=== PATIENT | male | born 1995 | race Caucasian/White ===

== ENCOUNTER 2018-12-31 12:20 | Outpatient (CLI) | payer BC ==
--- NOTE | 2018-12-31 13:41 | MRI ---
MRI Lower Ext Jt Lt WO Con History: S 83.512A rupture ACL of left knee Comparison: Knee radiograph December 27, 2018 Findings: Medial meniscus: Complex tear posterior horn medial meniscus extending to the root attachme nt with relatively vertical component through the red zone as well as a radial oblique tear extending to the posterior horn body junction from the free edge into the intermediate zone. There is also tear of the posterior medial meniscocapsular junction. Lateral meniscus: Intact Complete rupture proximal fibers anterior cruciate ligament. Posterior cruciate ligament is intact. G rade 2 tear medial collateral ligament posterior oblique fibers. Abnormal high signal, grade 1 injury, the lateral collateral ligament. The biceps tendon is intact. There is a tear of the arcuate ligament. Grade 2 tear of the popliteus. Extensor mechanism: The quadriceps tendon, patella, and patellar tendon are intact. Cartilage: Patellofemoral compartment: Intact Medial compartment: Intact Lateral compartment: Intact Bones: There is a subtle cortical impaction fracture lateral femoral condyle as well as a lateral tib ial plateau posterior submeniscal contusion. Soft tissues: Moderate joint effusion. No free bodies appreciated. Muscles: Grade 2 partial tear of the popliteus as well as the soleus grade 1 injury. Impression: 1. Full-thickness rupture proximal fibers anterior cruciate ligament. 2. Complex tear medial meniscus including a vertical longitudinal tear through the posterior horn as well as a radial oblique tear of the horn body junction. There is also posterior meniscocapsular separation. Vertical longitudinal tear does extend to the root attachment. 3. Grade 1 injury of the lateral collateral ligament. 4. Grade 2 partial tear of the popliteus myotendinous junction with edema extending into the muscle b august. 5. Low-grade 1 injury of the soleus. 6. Rupture of the arcuate ligament and intact biceps tendon. 7. Rupture of the posterior oblique fibers medial collateral ligament.
== END 2018-12-31 12:21 | disposition home or self-care (01) ==
LOC: TBSIIMAG 12:20
PROVIDERS: ATTEND Orthopaedic Surgery
DX: S83.512A Sprain of anterior cruciate ligament of left knee, initial encounter (principal); S83.232A Complex tear of medial meniscus, current injury, left knee, initial encounter; S76.812A Strain of other specified muscles, fascia and tendons at thigh level, left thigh, initial encounter; S83.8X2A Sprain of other specified parts of left knee, initial encounter; S83.412A Sprain of medial collateral ligament of left knee, initial encounter; S86.002A Unspecified injury of left Achilles tendon, initial encounter; R60.0 Localized edema

== ENCOUNTER 2019-01-05 07:35 | Observation (INO) | payer BC, OTHER ==
[2019-01-03 16:12] VITALS: BMI 29.5
[2019-01-05] MEDS ORDERED: ceFAZolin Sodium (SDC) 2 GM/100 ML BAG ONE (07:57)
[2019-01-05] MEDS ORDERED: Midazolam HCl 2 mg/2 ml Vial ONE (08:21)
[2019-01-05] MEDS ORDERED: Fentanyl 100 MCG/2 ML VIAL ONE ×4 (08:21→13:00)
[2019-01-05] MEDS ORDERED: Lidocaine 1% (PF) 30 ML VIAL ONE (08:22)
[2019-01-05] MEDS ORDERED: Ondansetron PF 4 MG/2 ML Vial IVP PRN (09:23)
[2019-01-05] MEDS ORDERED: Zolpidem Tartrate 5 MG TAB PO PRN (09:23)
[2019-01-05] MEDS ORDERED: Ropivacaine 0.2% 550 ML 550 ML NERVE BLCK SCH (09:23)
[2019-01-05] MEDS ORDERED: HYDROcodone/Acetaminophen 10/325 mg Tablet PO PRN ×2 (09:23)
[2019-01-05] MEDS ORDERED: Promethazine HCl 25 MG/ML VIAL IM PRN (09:23)
[2019-01-05] MEDS ORDERED: traMADol HCl 50 MG TAB PO PRN ×2 (09:23)
[2019-01-05] MEDS ORDERED: Fentanyl 100 MCG/2 ML VIAL IV PRN (09:24)
[2019-01-05] MEDS ORDERED: Morphine 2 MG/ML SYRINGE SLOW IVP PRN (11:47)
[2019-01-05] MEDS ORDERED: Milk Of Magnesia 30 ML UDCUP PO PRN (11:47)
[2019-01-05] MEDS ORDERED: diphenhydrAMINE 50 MG CAP PO PRN (11:47)
[2019-01-05] MEDS ORDERED: Methocarbamol 500 MG TAB PO PRN (11:47)
[2019-01-05] MEDS ORDERED: HYDROcodone/Acetaminophen 7.5/325 mg Tablet PO PRN (11:47)
[2019-01-05] MEDS ORDERED: Acetaminophen 500 MG TAB PO PRN (11:47)
[2019-01-05] MEDS ORDERED: Morphine 4 MG/ML VIAL SLOW IVP PRN (11:47)
[2019-01-05] MEDS ORDERED: Bisacodyl 10 MG SUPP PR PRN (11:47)
--- NOTE | 2019-01-05 12:51 | OP ---
DATE OF PROCEDURE: 01/05/2019 POSTOPERATIVE DIAGNOSES: Left knee anterior cruciate ligament tear and medial meniscus tear. POSTOPERATIVE DIAGNOSES: Left knee anterior cruciate ligament tear and medial meniscus tear. PROCEDURES PERFORMED: 1. Left knee exam under anesthesia. 2. Left knee arthroscopy with arthroscopically-assisted anterior cruciate ligament reconstruction using autologous patellar tendon graft. 3. Partial medial meniscectomy. LAND SURVEYOR: Darryl Howard PA-C ESTIMATED BLOOD LOSS: Minimal. COMPLICATIONS: None. ANESTHESIA: The patient had general anesthetic. He also had a preoperative block. IMPLANTS: We used a 7 x 25 metal interference screw to fix the femur. We used bicortical screw with a smooth washer to fix our tibia. DISPOSITION: He did go to recovery room in stable condition. INDICATIONS: This is a 23-year-old who injured his left knee while dancing and at this time is presenting for reconstruction. DESCRIPTION OF PROCEDURE: After all appropriate consent forms were explained and signed, he was taken to the operative room and at this time was given general anesthetic. An exam under anesthesia confirmed a positive Janell's and a positive pivot. At this time, a tourniquet was placed on the left thigh. Leg was placed in arthroscopic leg lopez. The limb was then prepped and draped in standard surgical fashion. Limb was exsanguinated. Tourniquet was taken to 250 mmHg. Midline incision was made with 10 blade down through the skin. Bovie was used to coagulate any brisk venous bleeding. New blade was used to take paratenon off the underlying patellar tendon and at this time, a central third patellar tendon graft was harvested in standard fashion using a double 10 blade saw and osteotome. This was taken to the back table and fashioned so that both bone plugs were size 10. We then loosely closed our graft site using multiple interrupted Vicryl sutures. Inferolateral portal was established. Scope was placed into the knee joint. Needle localization technique was then used to make our medial working portal and at this time, diagnostic arthroscopy commenced. ACL was found to be torn. PCL was intact. There was a chondral injury to the medial femoral condyle. This was not full thickness, but appeared to be proximally grade 2 lesion. This was about 8 to 10 mm in medial and lateral width and about 6 mm anterior-posterior. At this time, the medial compartment was evaluated. There was a very complex tear of the medial meniscus, which included a far posterior horn tear between the meniscus and the capsule. There was then another horizontal tear anterior to this and then anterior to that, there was a 3rd tear, which was a radial oblique tear, which started toward the body and went posteriorly to near the area of the posterior root. At this time, the most anterior portion of the tear was obviously not deemed repairable, was found to be avascular and this was removed with a biter in hopes we could fix the portion of the tissue behind it. Once this was done, we did try to fix the remaining tissue, but this was found to be too unstable in the small remnant that was anterior to our most posterior tear and in trying to deploy the device, just pulled right through the tissue secondary to poor quality. Therefore, it was deemed that we would just remove this portion of the meniscus, trying to leave as much as possible as a remnant. Biter was then used to remove portion of the meniscal tear. The patient again did loose meniscus. It was not a subtotal meniscectomy, but probably in the realm of 50% of the posterior horn medial meniscus had to be removed. The body and anterior horn were normal. The lateral compartment was then evaluated and found to be intact. Patellofemoral joint was found to be in good condition. At this time, notchplasty was performed and once this was done, we flexed our knee up and through the medial portal, placed an an [id number] guide. Pin was placed up and out the anterolateral thigh. A 10-mm reamer was then used to ream our tunnel to a depth of 30. All loose bony cartilaginous debris was then removed from the knee joint. We then set our tibial guide into the knee at 52.5 degrees, placed our pin up into the knee joint and again reamed it with a 10 mm reamer. Again, all loose bony cartilaginous debris was removed from the knee joint. Once this was done, we smoothed off our rough edges using a raf and a rasp. We went dry. We flexed the knee up again, pulled the pin up and out the anterolateral thigh using this to pull our passing suture into the knee joint. The passing suture was pulled down the tibial tunnel and this was used to pull our graft up into the knee. Once this was done, our femoral side was fixated with a 7 x 25 metal interference screw and our knee was taken through range of motion by pulling on the tibial side strings that was taken to 3 to 5 degrees of hyperextension and full flexion. Graft was found to not impinge and was found to be in good position. Therefore, scope was removed. Knee was drained. We then drilled, tapped and placed our bicortical screw with a smooth washer and used this to tie our strings around as a post in near full extension and posterior drawer being applied. Once this was done, again the knee was taken through full range of motion and Janell was noted to be normal. At this time, we then bone grafted our patellar and tibial graft sites. We then ran a Vicryl to close our paratenon, 2-0 Vicryl and timoteo were used to close the skin. Bulky sterile dressing was applied. Tourniquet was let down. Toes pinked up nicely. The patient was awakened, taken to the recovery room in stable condition. All counts were correct at the end of the case and he did receive preoperative IV antibiotics. Job ID: [id number]
[2019-01-05] MEDS ORDERED: Promethazine HCl 25 MG/ML VIAL IM/IV PRN (13:16)
[2019-01-05] MEDS ORDERED: Ondansetron HCl/PF 4 MG/2 ML Vial IVP PRN (13:16)
[2019-01-05] MEDS ORDERED: HYDROmorphone 2 MG/ML VIAL SLOW IVP PRN (13:16)
[2019-01-05] MEDS ORDERED: Non-Formulary Medication 1 EACH PO PRN (13:16)
[2019-01-05] MEDS ORDERED: CEFAZOLIN 2 GM, IV Admixture Fee-Chemo 1 UNITS in Sodium Chloride 0.9% 100 ML IVPB SCH (14:00)
[2019-01-05] MEDS: Ketorolac Tromethamine 30 MG/ML VIAL IVP SCH ×3 (15:19→23:11)
[2019-01-05] MEDS: Dextrose 5 %-0.45 % NaCl 1,000 ML IV SCH ×2 (15:19→20:22)
[2019-01-05] MEDS: CEFAZOLIN 2 GM, IV Admixture Fee-Chemo 1 UNITS in Sodium Chloride 0.9% 100 ML IVPB SCH (17:34)
[2019-01-05] MEDS: Famotidine 20 MG TAB PO SCH (20:23)
[2019-01-05] MEDS: HYDROcodone/Acetaminophen 7.5/325 mg Tablet PO PRN (22:15)
[2019-01-06] MEDS: CEFAZOLIN 2 GM, IV Admixture Fee-Chemo 1 UNITS in Sodium Chloride 0.9% 100 ML IVPB SCH (03:07)
[2019-01-06] MEDS: Ketorolac Tromethamine 30 MG/ML VIAL IVP SCH (05:17)
[2019-01-06] MEDS: Dextrose 5 %-0.45 % NaCl 1,000 ML IV SCH (07:12)
[2019-01-06 07:34] VITALS: BP 128/61; TEMP 98
[2019-01-06] MEDS: Famotidine 20 MG TAB PO SCH (08:35)
[2019-01-06] MEDS: HYDROcodone/Acetaminophen 7.5/325 mg Tablet PO PRN (10:44)
== END 2019-01-06 10:50 | disposition home or self-care (01) ==
LOC: SDC 07:35 → SURG A 11:47
PROVIDERS: ADMIT Orthopaedic Surgery; ATTEND Orthopaedic Surgery
PROC: 0MQP4ZZ Repair Left Knee Bursa and Ligament, Percutaneous Endoscopic Approach (ICD-10-PCS; principal; 2019-01-06)
PROC: 0SBD4ZZ Excision of Left Knee Joint, Percutaneous Endoscopic Approach (ICD-10-PCS; 2019-01-06)
DX: S83.512A Sprain of anterior cruciate ligament of left knee, initial encounter (principal); S83.242A Other tear of medial meniscus, current injury, left knee, initial encounter
CPT/HCPCS: 96365; 96366; 96375; 96376; A4306; C1713; G0378; J0690; J1885; J2001; J2250; J2795; J3010; J3490

== ENCOUNTER 2019-07-20 09:27 | Day surgery (SDC) | payer BC, OTHER ==
[2019-07-19 10:01] VITALS: BMI 29.5
[2019-07-20] MEDS ORDERED: Fentanyl 100 MCG/2 ML VIAL ONE ×2 (09:37→12:11)
[2019-07-20] MEDS ORDERED: PROPOFOL 20 ML ONE (10:14)
[2019-07-20] MEDS ORDERED: Dexamethasone 20 MG/5 ML VIAL ONE (11:24)
[2019-07-20] MEDS ORDERED: Lidocaine 1% PF 5 ML VIAL ONE (11:24)
[2019-07-20] MEDS ORDERED: PROPOFOL 200 MG/20 ML VIAL ONE (11:24)
[2019-07-20] MEDS ORDERED: Lidocaine 2% w/Epinephrine 1:200K 20 ML VIAL ONE (11:25)
[2019-07-20] MEDS ORDERED: Bupivacaine HCl 0.5%/Epinephrine 1:200,000/PF 30 ml Vial ONE (11:25)
[2019-07-20] MEDS ORDERED: HYDROcodone/Acetaminophen 5/325 mg Tablet ONE (13:45)
--- NOTE | 2019-07-21 15:12 | OP ---
DATE OF PROCEDURE: 07/20/2019 PREOPERATIVE DIAGNOSIS: Left knee lateral meniscus tear. POSTOPERATIVE DIAGNOSES: 1. Left knee with some areas of significant scar tissue, status post anterior cruciate ligament reconstruction to include scarring in the interval between the anterior horn of lateral meniscus and a soft pad, a large area along the medial retinaculum, which appeared to be essentially the same as a medial plica. 2. Synovial fold on the inner surface of the lateral meniscus, which was read by the MRI as an undersurface lateral meniscus tear. PROCEDURE PERFORMED: Left knee arthroscopy with debridement and shaving. ANESTHESIA: He had general anesthetic as well as a local knee block. DISPOSITION: He went to recovery in stable condition. INDICATIONS: Lemuel is a 23-year-old who underwent an ACL reconstruction with autologous patellar tendon graft in the fall of 2018. Couple of weeks ago, the patient started noticing a sharp pain in the knee with some mild swelling and new MRI was ordered and was read as an undersurface flap tear of the lateral meniscus. At this time, he opted to have surgery. DESCRIPTION OF PROCEDURE: After all appropriate consent forms were explained and signed, he was taken back to the operating room and at this time was given general anesthetic. Once the level of anesthesia was appropriate, tourniquet was placed on the left thigh. Leg was placed in arthroscopic leg lopez. The limb was then prepped and draped in standard surgical fashion. The limb was exsanguinated. Tourniquet was taken to 250 mmHg. Inferolateral portal was established. Scope was placed into the knee joint. Needle localization technique was then used to make a medial working portal. Diagnostic arthroscopy commenced. In the notch, the ACL was found to be intact and completely synovialized. PCL was intact. There was an area of accrued scar tissue anterior to the ACL on the lateral side of this. Carefully using the SERFAS energy as well as the shaver, the scar tissue was debrided to open up the interval between the fat pad and . The medial compartment was evaluated. The patient had a significant amount of medial meniscus removed on his first surgery. There were no new meniscus tears noted. The edges of the partial meniscectomy were now smoothed. There were no new cartilage lesions. The previous grade 2 area on his medial femur was again noted, unchanged. The lateral compartment was then completely investigated. There was a synovial fold perhaps slightly hypertrophic underneath the lateral meniscus. This was felt to be with the MRI read as an undersurface flap tear. Again, the superior and inferior surfaces over the lateral meniscus throughout its entirety were normal. Cartilage on the tibial plateau and femur were normal. No loose bodies were noted in the posterolateral compartment. Popliteal tendon was noted to be normal. We did debride the undersurface synovium. We then moved on to medial and lateral gutters. No loose bodies were noted in either. Patellofemoral joint showed the patella and trochlea to be in excellent condition. There was a large what appeared to be a medial-based plica and this was taken down at this time as it appeared red and injected and again was debrided using the SERFAS energy as well as the shaver. At this time, we went through the knee one more time, looking for any loose bodies and any other abnormality, there were none. The scope was removed. Knee was drained. Portals were closed with simple nylon stitch. Bulky sterile dressing was then applied. Tourniquet was let down. Toes pinked up nicely. The patient was then awakened. He was taken to the recovery room in stable condition. All counts were correct at the end of the case and he did receive preoperative IV antibiotics. Job ID: [id number]
== END 2019-07-20 14:20 | disposition home or self-care (01) ==
LOC: SDC 09:27
PROVIDERS: ATTEND Orthopaedic Surgery
PROC: 0SBD4ZZ Excision of Left Knee Joint, Percutaneous Endoscopic Approach (ICD-10-PCS; principal; 2019-07-20)
DX: S83.282A Other tear of lateral meniscus, current injury, left knee, initial encounter (principal)
CPT/HCPCS: J0670; J0690; J1100; J2001; J2704; J3010